=== PATIENT | male | born 1980 | race Two or more races ===

== ENCOUNTER 2024-08-28 10:28 | Inpatient (IN) | payer OTHER ==
[2024-08-28 10:46] VITALS: BMI 22.3
[2024-08-28] MEDS ORDERED: ACETAMINOPHEN 325 MG TABLET (FP) PO PRN (11:06)
[2024-08-28] MEDS ORDERED: BENZOCAINE/MENTHOL (CHLORASEPTIC ) LOZENGE MM PRN (11:06)
[2024-08-28] MEDS ORDERED: NICOTINE POLACRILEX 2 MG GUM BUC PRN (11:06)
[2024-08-28] MEDS ORDERED: MAG HYDROX/AL HYDROX/SIMETH 30 ML UNIT-DOSE CUP PO PRN (11:06)
[2024-08-28] MEDS ORDERED: NALOXONE (NARCAN) HCL 4 MG/0.1 ML SPRAY NS PRN (11:06)
[2024-08-28] MEDS ORDERED: DICYCLOMINE HCL 10 MG CAPSULE PO PRN (11:06)
[2024-08-28] MEDS ORDERED: ONDANSETRON *ODT* 4 MG TABLET SL PRN (11:06)
[2024-08-28] MEDS ORDERED: IBUPROFEN 400 MG TABLET (FP) PO PRN (11:06)
[2024-08-28] MEDS ORDERED: hydrOXYzine PAMOATE 25 MG CAPSULE (FP) PO PRN (11:06)
[2024-08-28] MEDS ORDERED: POLYETHYLENE GLYCOL (HEALTHYLAX) 3350 17 GM PACKET PO PRN (11:06)
[2024-08-28] MEDS ORDERED: IBUPROFEN 600 MG TABLET (FP) PO PRN (11:06)
[2024-08-28] MEDS ORDERED: MAGNESIUM HYDROX 2400MG/30ML ORAL SUSPENSION 30 ML CUP PO PRN (11:06)
[2024-08-28] MEDS ORDERED: guaiFENesin 600 MG TABLET.ER (FP) PO PRN (11:06)
[2024-08-28] MEDS ORDERED: chlordiazePOXIDE HCL 25 MG CAPSULE PO PRN (11:06)
[2024-08-28] MEDS ORDERED: BISMUTH SUBSALICYLATE 262 MG/15 ML BTL PO PRN (11:06)
[2024-08-28] MEDS ORDERED: BENZONATATE 200 MG CAPSULE PO PRN (11:06)
[2024-08-28] MEDS ORDERED: LOPERAMIDE HCL 2 MG CAPSULE PO PRN (11:06)
[2024-08-28] MEDS ORDERED: chlordiazePOXIDE HCL 25 MG CAPSULE ONE (11:53)
[2024-08-28] MEDS ORDERED: PRENATAL VITAMINS W/ FOLIC ACID TABLET (FP) PO ONE (11:53)
[2024-08-28] MEDS: chlordiazePOXIDE HCL 25 MG CAPSULE PO SCH (11:54)
[2024-08-28] MEDS: PRENATAL VITAMINS W/ FOLIC ACID TABLET (FP) PO SCH (11:54)
[2024-08-28] MEDS: NALTREXONE HCL 50 MG TABLET PO ONE (12:10)
[2024-08-28 15:41] LABS: HIV INTERPRETATION NEGATIVE (NEGATIVE)
[2024-08-28 15:55] LABS: HCV DIAGNOSTIC IN-HOUSE W/RFLX NON-REACTIVE (NONREACTIVE)
[2024-08-28] MEDS: THIAMINE 100 MG TABLET PO SCH (22:29)
[2024-08-28] MEDS: MELATONIN 5 MG TABLETS PO SCH (22:29)
[2024-08-28] MEDS: METHOCARBAMOL 500 MG TABLET PO PRN (22:29)
[2024-08-29] MEDS: NALTREXONE HCL 50 MG TABLET PO SCH (10:45)
[2024-08-29 11:23] LABS: HEMATOCRIT 44.1 % (40.1-51.0); HEMOGLOBIN 14.8 g/dL (13.7-17.5); MCHC 33.6 g/dl (32.3-36.5); MEAN CELL VOLUME 93.2 fl (79.0-92.2); PLATELET COUNT 181 x10^3/uL (163-337)
[2024-08-29 11:53] LABS: POTASSIUM 4.1 mmol/L (3.5-5.1)
[2024-08-29 12:02] LABS: BLOOD UREA NITROGEN 7.7 mg/dL (7-18); CALCIUM 9.5 mg/dL (8.5-10.1)
[2024-08-29 12:09] LABS: ALBUMIN 4.3 g/dl (3.4-5.0)
[2024-08-29 12:10] LABS: BILIRUBIN,TOTAL 0.4 mg/dL (0.2-1); CREATININE 0.7 mg/dL (0.55-1.3); TOT PROT 7.7 g/dl (6.4-8.2)
[2024-08-30] MEDS: chlordiazePOXIDE HCL 25 MG CAPSULE PO SCH (05:32)
[2024-08-30 09:12] VITALS: RESP 18
[2024-08-30 17:03] VITALS: BP 129/91; PULSE 73; TEMP 97.8
[2024-08-31] MEDS ORDERED: chlordiazePOXIDE HCL 10 MG CAPSULE PO PRN
[2024-08-31] MEDS ORDERED: chlordiazePOXIDE HCL 10 MG CAPSULE PO SCH (05:00)
[2024-09-01] MEDS ORDERED: chlordiazePOXIDE HCL 10 MG CAPSULE PO SCH (05:00)
[2024-09-02] MEDS ORDERED: chlordiazePOXIDE HCL 10 MG CAPSULE PO ONE (05:00)
== END 2024-08-30 18:19 | disposition left against medical advice (07) | DRG 770 ==
LOC: YASAS 10:28 → Y3N 12:13
PROVIDERS: ADMIT Allergy & Immunology; ATTEND Allergy & Immunology
PROC: HZ2ZZZZ Detoxification Services for Substance Abuse Treatment (ICD-10-PCS; principal; 2024-08-28)
DX: F10.230 Alcohol dependence with withdrawal, uncomplicated (principal); F14.20 Cocaine dependence, uncomplicated; F12.20 Cannabis dependence, uncomplicated; F17.210 Nicotine dependence, cigarettes, uncomplicated; I10 Essential (primary) hypertension; Z62.810 Personal history of physical and sexual abuse in childhood; Z59.02 Unsheltered homelessness
CPT/HCPCS: 36415; 80053; 80305; 80307; 85027; 86780; 86803; 87389; 93005; 93010